=== PATIENT | female | born 1990 | race Two or more races ===

== ENCOUNTER 2016-05-31 13:02 | Emergency (ER) | payer OTHER ==
[2016-05-31 13:13] VITALS: TEMP 97.9
[2016-05-31] MEDS ORDERED: ONDANSETRON 4 MG/2 ML VIAL ONE (13:25)
[2016-05-31] MEDS ORDERED: NS 1,000 ML IV ONE ×2 (13:43→15:15)
[2016-05-31] MEDS ORDERED: ONDANSETRON 4 MG/2 ML VIAL IVP ONE ×2 (13:43→14:39)
[2016-05-31] MEDS ORDERED: LORazepam 2 MG/ML INJ IVP ONE (13:55)
--- NOTE | 2016-05-31 13:59 | EDPHY ---
H & P Stated Complaint: r sided lumbar back pain/spasms n/v HPI/ROS: CHIEF COMPLAINT: Right lower back pain and spasm HISTORY OF PRESENT ILLNESS: patient complains of 2-3 days history of right lower back pain. This is painful spasm. It is isolated to the right lower back. This is the same pain, location and spasm that she has had in the past. She has been treated with various medications [id number] and previous muscle relaxants. She currently only has anti-inflammatories. She has been taking his without improvement. The pain and spasms are severe. There is no midline tenderness. No urinary complaints. No incontinence of bowel or bladder. No saddle anesthesia. No motor or sensory changes in the lower extremities or any pain in the extremity. No trauma or injury. Symptoms the same as previous incidents of this. No other associated complaints or modifying factors. REVIEW OF SYSTEMS: Ten systems reviewed and are negative unless otherwise noted in the HPI PERTINENT MEDICAL HISTORY: Muscle spasms EXAMINATION General Appearance: Alert, no distress Head: normocephalic, atraumatic Eyes: Pupils equal and round, no conjunctival pallor or injection ENT, Mouth: Mucous membranes moist. Uvula midline. No erythema or edema. Neck: Normal inspection, supple, non-tender Respiratory: Lungs are clear to auscultation Cardiovascular: Regular rate and rhythm . No murmur. Pulses intact distally. Gastrointestinal: Abdomen is soft and nontender . No tympany. No rigidity. No CVA tenderness. Back: Mild tenderness in the right lumbar soft tissue. No midline tenderness. No crepitus, step-off deformity. There is muscle spasm appreciated in the paravertebral musculature of the lumbar region. Neurological: A&O, nonfocal, normal gait . GCS 15. Strength is symmetric in all limbs. Skin: Warm and dry, no rash Extremities: Nontender, no pedal edema Psychiatric: Mood and affect normal DIFFERENTIAL DIAGNOSES: Including but not limited to Muscle spasm, low back pain, chronic pain, electrolyte disturbance, magnesium deficiency MDM: 1:55 p.m. right low back pain and spasm started early this morning. She has no urinary complaints. She has no abdominal pain. This is typical for previous back spasms. No acute distress. No midline back tenderness on examination. No abdominal pain. 3:08 p.m. laboratory studies are within normal limits. She has received Ativan and Zofran. I have re-evaluated the patient. Her back pain is improved, but she is still nauseated and vomiting. I will order Reglan and Benadryl and more IV fluid. Will continue to monitor. 4:20 p.m. she is feeling significantly better at this time. No further vomiting. She is asking to be discharged home. I suspect that she may have a viral enteritis along with her low back pain and spasm. Treat with multiple antiemetics as well as a muscle relaxant. She is comfortable with this plan and discharged home in stable condition. SUPERVISION: This patient was independently evaluated without direct examination by the attending physician. Case was discussed with attending physician. Source: Patient Exam Limitations: No limitations - Personal History LMP (Females 10-55): Now Current Tetanus/Diphtheria Vaccine: Yes - Medical/Surgical History Hx Asthma: No Hx Chronic Respiratory Disease: No Hx Diabetes: No Hx Cardiac Disease: No Hx Renal Disease: No Hx Cirrhosis: No Hx Alcoholism: No Hx HIV/AIDS: No Hx Splenectomy or Spleen Trauma: No Other PMH: back pain/anxiety - Social History Smoking Status: Never smoked Constitutional: Initial Vital Signs Temperature (C) 97.9 F 05/31/16 13:10 Heart Rate 65 05/31/16 13:10 Respiratory Rate 17 05/31/16 13:10 Blood Pressure 136/71 H 05/31/16 13:10 O2 Sat (%) 97 05/31/16 13:10 O2 Delivery Mode Room Air Allergies/Adverse Reactions: amoxicillin Allergy (Verified 05/31/16 13:09) Home Medications: Medication Instructions Recorded Adderall 10 MG (*) 05/31/16 Cyclobenzaprine [Flexeril 10 MG 10 mg PO TID PRN #15 tab 05/31/16 (*)] Depakote 05/31/16 LAMOTRIGINE 05/31/16 Ondansetron Odt [Zofran Odt 4 mg 4 mg PO Q6 PRN #12 tab 05/31/16 (*)] Promethazine HCl [Phenergan 25mg 25 mg PO Q8 PRN #12 tab 05/31/16 (*)] Zoloft 100mg (*) 05/31/16 Medical Decision Making - Data Points Laboratory Results: Laboratory Results 05/31/16 13:30 05/31/16 05/31/16 13:30 13:30 Sodium 142 mEq/L mEq/L (134-144) Potassium 3.9 mEq/L mEq/L (3.5-5.2) Chloride 106 mEq/L mEq/L (97-110) Carbon Dioxide 23 mEq/l mEq/l (22-31) Anion Gap 13 mEq/L mEq/L (8-16) BUN 9 mg/dL mg/dL (7-23) Creatinine 0.7 mg/dL mg/dL (0.6-1.0) Estimated GFR > 60 Glucose 99 mg/dL mg/dL (70-100) Calcium 9.5 mg/dL mg/dL (8.5-10.4) Magnesium 2.0 mg/dL mg/dL (1.6-2.3) Lipase 132.0 IU/L IU/L (23-300) Beta HCG, Qual NEGATIVE Medications Given: Discontinued Medications Diphenhydramine HCl (Benadryl Injection) 25 mg IVP EDNOW ONE Stop: 05/31/16 15:15 Last Admin: 05/31/16 15:43 Dose: 25 mg Sodium Chloride (Ns) 1,000 mls @ 0 mls/hr IV ONCE ONE PRN Reason: Wide Open Stop: 05/31/16 13:44 Last Admin: 05/31/16 13:44 Dose: 1,000 mls Sodium Chloride (Ns) 1,000 mls @ 0 mls/hr IV ONCE ONE PRN Reason: Wide Open Stop: 05/31/16 15:16 Last Admin: 05/31/16 15:44 Dose: 1,000 mls Lorazepam (Ativan Injection) 1 mg IVP EDNOW ONE Stop: 05/31/16 13:56 Last Admin: 05/31/16 14:16 Dose: 1 mg Metoclopramide HCl (Reglan Injection) 10 mg IVP EDNOW ONE Stop: 05/31/16 15:15 Last Admin: 05/31/16 15:43 Dose: 10 mg Ondansetron HCl (Zofran) 4 mg IVP EDNOW ONE Stop: 05/31/16 13:44 Last Admin: 05/31/16 13:44 Dose: 4 mg Ondansetron HCl (Zofran) 4 mg IVP EDNOW ONE Stop: 05/31/16 14:40 Last Admin: 05/31/16 14:45 Dose: 4 mg Departure - Departure Disposition: Home, Routine, Self-Care Clinical Impression: Spasm of back muscles Low back pain Qualifiers: Chronicity: acute Back pain laterality: right Sciatica presence: without sciatica Qualified Code(s): M54.5 - Low back pain Nausea & vomiting Qualifiers: Vomiting type: unspecified Vomiting Intractability: non-intractable Qualified Code(s): R11.2 - Nausea with vomiting, unspecified Condition: Good Instructions: Acute Low Back Pain (ED), Muscle Spasm (ED) Additional Instructions: warm compresses, ibuprofen 600-800 mg every 8 hours as needed, muscle relaxant as needed. Follow up with primary care physician for further prescriptions Referrals: [facility]ALLPA [Other] - As per Instructions Prescriptions: Cyclobenzaprine [Flexeril 10 MG (*)] 10 mg PO TID PRN #15 tab PRN Reason: Spasms Ondansetron Odt [Zofran Odt 4 mg (*)] 4 mg PO Q6 PRN #12 tab PRN Reason: Nausea/Vomiting, Use 1st Promethazine HCl [Phenergan 25mg (*)] 25 mg PO Q8 PRN #12 tab PRN Reason: Nausea/Vomiting, Use 1st
[2016-05-31 14:44] LABS: ANION GAP 13 mEq/L (8-16); CALCIUM 9.5 mg/dL (8.5-10.4); CARBON DIOXIDE 23 mEq/l (22-31); CHLORIDE 106 mEq/L (97-110); CREATININE 0.7 mg/dL (0.6-1.0); GLOMERULAR FILTRATION RATE > 60; GLUCOSE 99 mg/dL (70-100); POTASSIUM 3.9 mEq/L (3.5-5.2); SODIUM 142 mEq/L (134-144)
[2016-05-31] MEDS ORDERED: METOCLOPRAMIDE 10 MG/2 ML VIAL IVP ONE (15:14)
[2016-05-31 16:41] VITALS: BP 114/69; PULSE 59; RESP 18; O2SAT 98
== END 2016-05-31 16:39 | disposition home or self-care (01) ==
DX: M62.830 Muscle spasm of back (principal); R11.2 Nausea with vomiting, unspecified
CPT/HCPCS: 96374; J1200; J2060; J2405; J2765